=== PATIENT | female | born 1955 | race Caucasian/White ===

== ENCOUNTER 2017-08-05 16:08 | Inpatient (IN) | payer BC ==
[~2017-08-05] VITALS: Ht 154.9 cm; Wt 74.5 kg
[~2017-08-05 16:08] MED LIST: BUPR100T13 PO; ESTR1TAB PO; FLUO90CA PO; NADO80TA14 PO
[2017-08-05 16:21] VITALS: BP_SYST 148
[2017-08-05 17:25] LABS: BASOPHILS % (AUTO) 0.4 % (0.0-2.0); EOSINOPHILS # (AUTO) 0.4 K/uL (0.0-0.4); EOSINOPHILS % (AUTO) 5.4 % (0.0-4.0); HEMATOCRIT 44.4 % (36-48); HEMOGLOBIN 14.8 g/dL (12.0-16.0); LYMPHOCYTES # (AUTO) 1.8 K/uL (1.0-5.5); LYMPHOCYTES % (AUTO) 22.9 % (20.5-51.5); MEAN CORPUSCULAR HEMOGLOBIN 32 pg (27-31); MEAN CORPUSCULAR HGB CONC 33 % (32-36); MEAN CORPUSCULAR VOLUME 96 fL (79.0-98.0); MONOCYTES # (AUTO) 0.6 K/uL (0.0-1.0); MONOCYTES % (AUTO) 7.2 % (1.7-9.3); NEUTROPHILS # (AUTO) 5.1 K/uL (1.8-7.7); NEUTROPHILS % (AUTO) 64.1 % (40.0-70.0); PLATELET COUNT (AUTO) 302 K/uL (130-430); RED BLOOD CELL COUNT(AUTO) 4.62 MIL/uL (4.2-6.2); RED CELL DISTRIBUTION WIDTH 11.6 % (9.0-15.0); WHITE BLOOD COUNT (AUTO) 7.9 K/uL (4.8-10.8)
[2017-08-05 17:31] LABS: CALCIUM 9.5 mg/dL (8.4-11.0); CREATININE 0.65 mg/dL (0.55-1.30); POTASSIUM 3.5 mmol/L (3.5-5.1)
[2017-08-05 17:36] LABS: TOTAL BILIRUBIN 0.6 mg/dL (0.0-1.0)
[2017-08-05 18:26] LABS: BILIRUBIN,URINE NEGATIVE (NEGATIVE); BLOOD, URINE NEGATIVE (NEGATIVE); CLARITY/URINE SL HAZY (CLEAR); COLOR,URINE YELLOW (YELLOW); GLUCOSE,URINE NEGATIVE (NEGATIVE); KETONES,URINE NEGATIVE (NEGATIVE); LEUKOCYTE ESTERASE ,URINE 1+ (NEGATIVE); NITRITE, URINE NEGATIVE (NEGATIVE); PROTEIN URINE NEGATIVE (NEGATIVE); UROBILINOGEN,URINE 0.2 (0.2-1.0)
[2017-08-05 18:44] LABS: BACTERIA,URINE MANY /HPF (None Seen); RBC,URINE 0-3 /HPF (0-3)
[2017-08-05 18:45] LABS: MUCUS,URINE 1+ /LPF (None Seen)
[2017-08-05] MEDS ORDERED: ONDANSETRON HCL 4 MG/2 ML VIAL IVP PRN (19:15)
[2017-08-05] MEDS ORDERED: MUPIROCIN 2% TOPICAL OINTMENT 22 GM NS PRN (19:15)
[2017-08-05] MEDS ORDERED: DOCUSATE SODIUM 100 MG CAPSULE PO PRN (19:15)
[2017-08-05] MEDS ORDERED: MORPHINE 2 MG/ML INJ. SYRINGE IVP PRN (19:15)
[2017-08-05] MEDS ORDERED: MAGNESIUM SULFATE 50 ML IV PRN (19:15)
[2017-08-05] MEDS ORDERED: POTASSIUM CHLORIDE 20 MEQ TAB.PRT.SR PO PRN (19:15)
[2017-08-05] MEDS ORDERED: LORazepam 2 MG/ML VIAL IVP PRN (19:15)
[2017-08-05] MEDS ORDERED: ACETAMINOPHEN 325 MG TABLET PO PRN (19:15)
[2017-08-05] MEDS ORDERED: cloNIDine HCL 0.1 MG TABLET PO PRN (19:30)
[2017-08-05 20:19] VITALS: BP_SYST 123
[2017-08-05] MEDS: METOPROLOL TARTRATE 50 MG TABLET PO SCH (21:00)
[2017-08-05] MEDS ORDERED: cefTRIAXone 1 GM IVPB PREMIX 50 ML IV ONE (21:07)
[2017-08-05] MEDS: cefTRIAXone 1 GM in D5W 50 ML IV SCH (21:26)
[2017-08-05] MEDS: NACL 0.9% 1,000 ML IV SCH (21:29)
[2017-08-05] MEDS: MORPHINE 2 MG/ML INJ. SYRINGE IVP PRN (21:37)
[2017-08-05] MEDS ORDERED: TOP25 PO (22:35)
[2017-08-05] MEDS ORDERED: CELE200C PO (22:35)
[2017-08-05] MEDS ORDERED: HYDR25TA4 PO (22:35)
[2017-08-05] MEDS ORDERED: NOR10 PO (22:35)
[2017-08-05] MEDS ORDERED: BUSP10TA3 PO (22:35)
[2017-08-05] MEDS ORDERED: VORT20TA PO (22:35)
[2017-08-05] MEDS ORDERED: OMEP20CA10 PO (22:35)
[2017-08-05] MEDS ORDERED: EST1 PO (22:35)
[2017-08-05] MEDS ORDERED: PRO20 PO (22:35)
[2017-08-05] MEDS ORDERED: NADO40TA18 PO (22:35)
[2017-08-05] MEDS: HEPARIN SODIUM,PORCINE 5000 UNITS/ML VIAL SUBCUT SCH (22:50)
[2017-08-05] MEDS: ZOLPIDEM TARTRATE 5 MG TABLET PO PRN (22:51)
[2017-08-06 00:51] VITALS: BP_SYST 103
[2017-08-06] MEDS: MORPHINE 2 MG/ML INJ. SYRINGE IVP PRN (02:40)
[2017-08-06 06:00] LABS: CALCIUM 8.7 mg/dL (8.4-11.0); CREATININE 0.65 mg/dL (0.55-1.30); POTASSIUM 3.1 mmol/L (3.5-5.1)
[2017-08-06 06:25] LABS: BASOPHILS % (AUTO) 0.4 % (0.0-2.0); EOSINOPHILS # (AUTO) 0.4 K/uL (0.0-0.4); EOSINOPHILS % (AUTO) 5.8 % (0.0-4.0); HEMATOCRIT 39.7 % (36-48); HEMOGLOBIN 13.7 g/dL (12.0-16.0); LYMPHOCYTES # (AUTO) 2.3 K/uL (1.0-5.5); LYMPHOCYTES % (AUTO) 31.4 % (20.5-51.5); MEAN CORPUSCULAR HEMOGLOBIN 33 pg (27-31); MEAN CORPUSCULAR HGB CONC 35 % (32-36); MEAN CORPUSCULAR VOLUME 95 fL (79.0-98.0); MONOCYTES # (AUTO) 0.8 K/uL (0.0-1.0); MONOCYTES % (AUTO) 10.7 % (1.7-9.3); NEUTROPHILS # (AUTO) 3.8 K/uL (1.8-7.7); NEUTROPHILS % (AUTO) 51.7 % (40.0-70.0); PLATELET COUNT (AUTO) 230 K/uL (130-430); RED BLOOD CELL COUNT(AUTO) 4.17 MIL/uL (4.2-6.2); RED CELL DISTRIBUTION WIDTH 11.9 % (9.0-15.0); WHITE BLOOD COUNT (AUTO) 7.3 K/uL (4.8-10.8)
[2017-08-06] MEDS: MORPHINE 4 MG/ML INJ. SYRINGE IVP PRN ×5 (06:46→23:16)
[2017-08-06 08:00] VITALS: BP_SYST 116
[2017-08-06] MEDS: buPROPion HCL 100 MG TABLET PO SCH (08:31)
[2017-08-06] MEDS: NACL 0.9% 1,000 ML IV SCH ×2 (08:32→14:25)
[2017-08-06] MEDS: METOPROLOL TARTRATE 50 MG TABLET PO SCH ×2 (08:32→20:41)
[2017-08-06] MEDS: HEPARIN SODIUM,PORCINE 5000 UNITS/ML VIAL SUBCUT SCH ×2 (08:33→20:41)
[2017-08-06] MEDS ORDERED: FLUOXETINE HCL 90 MG PO SCH (09:00)
[2017-08-06] MEDS: [UNRECOGNIZED DRUG - OTHER] PO SCH (09:00)
[2017-08-06] MEDS: METHYLTESTOSTERONE PO SCH (09:00)
[2017-08-06 12:41] VITALS: BP_SYST 103
[2017-08-06 16:58] VITALS: BP_SYST 110
[2017-08-06 20:38] VITALS: BP_SYST 97
[2017-08-06] MEDS: cefTRIAXone 1 GM in D5W 50 ML IV SCH (20:43)
[2017-08-06] MEDS: ZOLPIDEM TARTRATE 5 MG TABLET PO PRN (23:07)
[2017-08-07 01:14] VITALS: BP_SYST 108
[2017-08-07] MEDS: NACL 0.9% 1,000 ML IV SCH ×3 (04:51→21:03)
[2017-08-07 05:15] VITALS: BP_SYST 101
[2017-08-07] MEDS: MORPHINE 4 MG/ML INJ. SYRINGE IVP PRN ×3 (05:18→21:14)
[2017-08-07 06:45] LABS: CREATININE 0.61 mg/dL (0.55-1.30); POTASSIUM 3.3 mmol/L (3.5-5.1)
[2017-08-07 07:18] LABS: BASOPHILS % (AUTO) 0.5 % (0.0-2.0); EOSINOPHILS # (AUTO) 0.5 K/uL (0.0-0.4); EOSINOPHILS % (AUTO) 6.3 % (0.0-4.0); HEMATOCRIT 37.7 % (36-48); HEMOGLOBIN 12.8 g/dL (12.0-16.0); MEAN CORPUSCULAR HEMOGLOBIN 33 pg (27-31); MEAN CORPUSCULAR HGB CONC 34 % (32-36); MEAN CORPUSCULAR VOLUME 97 fL (79.0-98.0); MONOCYTES # (AUTO) 0.7 K/uL (0.0-1.0); MONOCYTES % (AUTO) 9.7 % (1.7-9.3); NEUTROPHILS # (AUTO) 4.2 K/uL (1.8-7.7); NEUTROPHILS % (AUTO) 56.5 % (40.0-70.0); PLATELET COUNT (AUTO) 207 K/uL (130-430); RED CELL DISTRIBUTION WIDTH 12.2 % (9.0-15.0); WHITE BLOOD COUNT (AUTO) 7.4 K/uL (4.8-10.8)
[2017-08-07] MEDS: [UNRECOGNIZED DRUG - OTHER] PO SCH (09:00)
[2017-08-07] MEDS: buPROPion HCL 100 MG TABLET PO SCH (09:00)
[2017-08-07] MEDS: METHYLTESTOSTERONE PO SCH (09:00)
[2017-08-07] MEDS: HEPARIN SODIUM,PORCINE 5000 UNITS/ML VIAL SUBCUT SCH ×2 (09:00→21:00)
[2017-08-07] MEDS: METOPROLOL TARTRATE 50 MG TABLET PO SCH ×2 (09:00→21:02)
[2017-08-07] MEDS ORDERED: POTASSIUM CHLORIDE 40 MEQ in NS 250 ML IV ONE (09:00)
[2017-08-07 16:37] VITALS: BP_SYST 109
[2017-08-07 19:00] VITALS: BP_SYST 123
[2017-08-07 20:00] VITALS: BP_SYST 123
[2017-08-07] MEDS: cefTRIAXone 1 GM in D5W 50 ML IV SCH (21:04)
[2017-08-07] MEDS: ZOLPIDEM TARTRATE 5 MG TABLET PO PRN (22:22)
[2017-08-08 00:40] VITALS: BP_SYST 115
[2017-08-08] MEDS: MORPHINE 4 MG/ML INJ. SYRINGE IVP PRN ×2 (03:10→08:57)
[2017-08-08 06:40] LABS: CALCIUM 8.3 mg/dL (8.4-11.0); CREATININE 0.59 mg/dL (0.55-1.30); POTASSIUM 3.8 mmol/L (3.5-5.1)
[2017-08-08 06:44] LABS: BASOPHILS % (AUTO) 0.5 % (0.0-2.0); EOSINOPHILS # (AUTO) 0.4 K/uL (0.0-0.4); EOSINOPHILS % (AUTO) 5.2 % (0.0-4.0); HEMATOCRIT 37.7 % (36-48); HEMOGLOBIN 12.9 g/dL (12.0-16.0); LYMPHOCYTES # (AUTO) 2.1 K/uL (1.0-5.5); LYMPHOCYTES % (AUTO) 25.2 % (20.5-51.5); MEAN CORPUSCULAR HEMOGLOBIN 33 pg (27-31); MEAN CORPUSCULAR HGB CONC 34 % (32-36); MEAN CORPUSCULAR VOLUME 96 fL (79.0-98.0); MONOCYTES # (AUTO) 0.7 K/uL (0.0-1.0); MONOCYTES % (AUTO) 8.5 % (1.7-9.3); NEUTROPHILS # (AUTO) 5.2 K/uL (1.8-7.7); NEUTROPHILS % (AUTO) 60.6 % (40.0-70.0); PLATELET COUNT (AUTO) 214 K/uL (130-430); RED BLOOD CELL COUNT(AUTO) 3.91 MIL/uL (4.2-6.2); RED CELL DISTRIBUTION WIDTH 12.2 % (9.0-15.0); WHITE BLOOD COUNT (AUTO) 8.4 K/uL (4.8-10.8)
[2017-08-08 08:00] VITALS: BP_SYST 122
[2017-08-08] MEDS ORDERED: ESTRADIOL 1 MG TABLET (ESTRACE) PO SCH (08:00)
[2017-08-08] MEDS: NACL 0.9% 1,000 ML IV SCH (08:51)
[2017-08-08] MEDS: [UNRECOGNIZED DRUG - OTHER] PO SCH (08:53)
[2017-08-08] MEDS: METHYLTESTOSTERONE PO SCH (08:53)
[2017-08-08] MEDS: METOPROLOL TARTRATE 50 MG TABLET PO SCH (08:53)
[2017-08-08] MEDS: buPROPion HCL 100 MG TABLET PO SCH (08:53)
[2017-08-08] MEDS: HEPARIN SODIUM,PORCINE 5000 UNITS/ML VIAL SUBCUT SCH (08:56)
[2017-08-08] MEDS ORDERED: FLUoxetine HCL 20 MG CAPSULE (PROzac) PO SCH (09:00)
[2017-08-08] MEDS ORDERED: amLODIPine BESYLATE 10 MG TABLET PO SCH (09:00)
[2017-08-08] MEDS ORDERED: HYDROCHLOROTHIAZIDE 25 MG TABLET (HCTZ) PO SCH (09:00)
[2017-08-08] MEDS ORDERED: CELECOXIB 200 MG CAPSULE PO SCH (09:00)
[2017-08-08] MEDS ORDERED: OMEPRAZOLE 20 MG CAPSULE.DR (PriLOSEC) PO SCH (09:00)
[2017-08-08] MEDS ORDERED: TOPIRAMATE 25 MG TABLET(TOPAMAX) PO SCH (09:00)
[2017-08-08] MEDS ORDERED: NADOLOL 20 MG TABLET(CORGARD) PO SCH (09:00)
[2017-08-08] MEDS ORDERED: DIPHENHYDRAMINE INJ 50 MG/ML VIAL IVP PRN (10:30)
[2017-08-08] MEDS: busPIRone HCL 5 MG TABLET PO SCH ×2 (10:50→15:01)
[2017-08-08 11:31] VITALS: BP_SYST 107
[2017-08-08 12:25] VITALS: BP_SYST 112
== END 2017-08-08 15:30 | disposition home or self-care (01) | DRG 600 ==
LOC: SED 16:08 → SMU 18:39
PROVIDERS: ADMIT General Practice; ATTEND General Practice
DX: T85.42XA Displacement of breast prosthesis and implant, initial encounter (principal); E87.1 Hypo-osmolality and hyponatremia; N39.0 Urinary tract infection, site not specified; Y83.8 Other surgical procedures as the cause of abnormal reaction of the patient, or of later complication, without mention of misadventure at the time of the procedure; B96.1 Klebsiella pneumoniae [K. pneumoniae] as the cause of diseases classified elsewhere; F32.9 Major depressive disorder, single episode, unspecified; G89.29 Other chronic pain; I10 Essential (primary) hypertension; K43.9 Ventral hernia without obstruction or gangrene; J45.909 Unspecified asthma, uncomplicated; M48.8X4 Other specified spondylopathies, thoracic region; R22.2 Localized swelling, mass and lump, trunk; M54.2 Cervicalgia; M19.90 Unspecified osteoarthritis, unspecified site; F41.1 Generalized anxiety disorder; K21.9 Gastro-esophageal reflux disease without esophagitis; Y92.89 Other specified places as the place of occurrence of the external cause; Z90.49 Acquired absence of other specified parts of digestive tract; Z98.84 Bariatric surgery status; Z98.82 Breast implant status; Z88.8 Allergy status to other drugs, medicaments and biological substances; Z79.899 Other long term (current) drug therapy
CPT/HCPCS: 36415; 74181; 74250-TC; 80048; 80053; 81000-TC; 82150-TC; 83690-TC; 83735-TC; 85025; 87086; 87186-TC; 99285; J0696; J1200; J1644; J2060; J2270; J2405; J3480; J7030; J7050; J7060